=== PATIENT | male | born 1955 ===

== ENCOUNTER 2023-03-05 12:37 | Day surgery (SDC) | payer MEDICARE, OTHER ==
[~2023-03-05] VITALS: Ht 185.4 cm; Wt 89.3 kg
[2023-03-05] MEDS ORDERED: LISI20 (12:57)
[2023-03-05] MEDS ORDERED: ROSU5 (13:00)
[2023-03-05] MEDS ORDERED: Lisinopril-Hct1 EAC4 (13:00)
--- NOTE | 2023-03-05 13:18 | NUR ---
03/05/23 1318 Danya Mccracken WAS NOTIFIED OF PATIENTS WOUNDS ON LEFT ARM FROM DOG ATTACK ONE WEEK PRIER TO TODAY.
--- NOTE | 2023-03-05 14:43 | NUR ---
03/05/23 1443 Corazon Humphrey IV OUT,WNL, PT TOLERATED WELL
== END 2023-03-05 15:13 | disposition home or self-care (01) ==
LOC: ORSCSDS 12:37 → EDBD 15:15
PROVIDERS: Ophthalmology
PROC: 08SRXZZ Reposition Left Lower Eyelid, External Approach (ICD-10-PCS; principal; 2023-03-05 14:00)
DX: H02.135 Senile ectropion of left lower eyelid (principal); H16.212 Exposure keratoconjunctivitis, left eye; Z87.891 Personal history of nicotine dependence; I10 Essential (primary) hypertension; E78.00 Pure hypercholesterolemia, unspecified; Z79.899 Other long term (current) drug therapy
CPT/HCPCS: A9270; J2704; J3010; J7040; J7120